=== PATIENT | female | born 1960 | race Caucasian/White ===

== ENCOUNTER → 2016-09-19 | Outpatient (REF) | LOC: ZLAB.WCH 10:50 | DX: Z02.89 Encounter for other administrative examinations (principal) ==

== ENCOUNTER → 2017-08-27 | Outpatient (REF) | LOC: ZLAB.WCH 12:10 | DX: Z01.89 Encounter for other specified special examinations (principal) ==

== ENCOUNTER → 2018-08-11 | Outpatient (REF) | LOC: ZLAB.WCH 08:50 | DX: Z01.89 Encounter for other specified special examinations (principal) ==

== ENCOUNTER → 2021-07-23 | Outpatient (CLI) | payer OTHER ==
[~2021-07-23] VITALS: Ht 170.2 cm; Wt 102.9 kg
[~2021-07-23] MED LIST: ASPIRIN 81M81 MG/TA2 PO; CLARITIN 1010 MG/TAB PO; HCTZ 25MG TAB25 MG PO; SINGULAIR 110 MG/TAB PO; SYNTHROID0.088 MG/T PO; TOPROL XL 25MG25 MG PO; XANAX 0.5MG0.5 MG PO
[2021-07-23 08:39] VITALS: BP 171/96; PULSE 82; TEMP 97.9
[2021-07-23 09:05] VITALS: BP 174/79; PULSE 71
[2021-07-23 09:10] VITALS: BP 155/72; PULSE 78
[2021-07-23 09:15] VITALS: BP 170/90; PULSE 80
[2021-07-23 09:20] VITALS: BP 164/86; PULSE 75
[2021-07-23 09:36] VITALS: BP 138/84; PULSE 83
== END ==
LOC: COL.RAD 07:48
DX: D38.1 Neoplasm of uncertain behavior of trachea, bronchus and lung (principal); M89.9 Disorder of bone, unspecified
CPT/HCPCS: 32108